=== PATIENT | female | born 1965 | race African-American/Black ===

== ENCOUNTER 2025-07-08 09:01 | Emergency (ER) | payer OTHER ==
[~2025-07-08] VITALS: Ht 162.6 cm; Wt 70.0 kg
[2025-07-08 09:03] VITALS: O2SAT 97
[2025-07-08] MEDS: IBUPROFEN 600MG TABLET PO ONE (10:05)
[2025-07-08] MEDS: ACETAMINOPHEN 325MG TABLET PO ONE (10:05)
[2025-07-08 10:13] LABS: BASOPHILS % 0.4 % (0.0-2.0); EOSINOPHILS % 0.1 % (0.0-5.0); HEMATOCRIT. 43.1 % (36.0-48.0); HEMOGLOBIN. 14.0 g/dL (12.0-16.0); LYMPHOCYTES % 22.9 % (20.0-50.0); MEAN PLATELET VOLUME 7.4 fl (7.4-10.4); MONOCYTES % 14.5 % (2.0-8.0); NEUTROPHILS % 62.1 % (40.0-76.0); PLATELET 152 x1000/uL (130-400); RED BLOOD CELL COUNT 4.30 mill/uL (4.2-5.4); RED CELL DISTRIBUTION WIDTH 13.9 % (11.6-14.6)
[2025-07-08 10:29] LABS: CREATININE 1.2 mg/dL (0.6-1.0); ETHANOL BLOOD < 10 mg/dL (<10); UREA NITROGEN BLOOD 16 mg/dL (9-23)
[2025-07-08 10:31] LABS: ASPARTATE AMINOTRANSFERASE 61 IU/L (<34); BILIRUBIN DIRECT 0.2 mg/dL (<=3.0); BILIRUBIN TOTAL 0.7 mg/dL (0.1-1.0); PROTEIN TOTAL 8.5 g/dL (6.0-8.3); TROPONIN I HIGH SENSITIVITY < 4 ng/L (3.0-34)
[2025-07-08 12:30] LABS: TROPONIN I HIGH SENSITIVITY 4 ng/L (3.0-34)
[2025-07-08 13:13] LABS: CLARITY URINE CLEAR (CLEAR); COLOR URINE YELLOW (YELLOW); GLUCOSE URINE NEGATIVE (NEGATIVE); KETONES URINE 4+ (NEGATIVE); LEUKOCYTE ESTERASE URINE NEGATIVE (NEGATIVE); NITRITE URINE NEGATIVE (NEGATIVE); OCCULT BLOOD URINE NEGATIVE (NEGATIVE); PH URINE 6.0 (4.5-8.0); PROTEIN URINE 2+ (NEGATIVE); SPECIFIC GRAVITY URINE 1.018 (1.005-1.030); UROBILINOGEN URINE 1.0 E.U./dL (0.2-1.0)
[2025-07-08] MEDS: POTASSIUM CHLORIDE 20MEQ TABLET SR PO NR (13:30)
[2025-07-08 13:46] LABS: *AMPHETAMINES SCREEN URINE NEGATIVE (NEGATIVE); *BARBITURATES SCREEN URINE NEGATIVE (NEGATIVE); *BENZODIAZEPINES SCREEN URINE NEGATIVE (NEGATIVE); *COCAINE SCREEN URINE NEGATIVE (NEGATIVE); CANNABINOID URINE SCREEN PRESUMPTIVE POSITIVE (NEGATIVE); ECSTASY MDMA SCREEN URINE NEGATIVE (NEGATIVE); METHADONE URINE SCREEN NEGATIVE (NEGATIVE); OPIATES URINE SCREEN NEGATIVE (NEGATIVE); PHENCYCLIDINE URINE SCREEN NEGATIVE (NEGATIVE)
[2025-07-08 13:54] LABS: MUCUS URINE TRACE /lpf (< = 2+); SQUAMOUS EPITHELIAL CELL URINE 2+ /lpf (RARE/1+); WBC URINE 0-2 /hpf (0-2)
[2025-07-08 13:55] LABS: YEAST URINE 1+
[2025-07-08 13:56] LABS: BACTERIA URINE TRACE; RBC URINE 0-2 /hpf (0-2)
[2025-07-08] MEDS ORDERED: ACET-2708 MT (14:36)
[2025-07-08] MEDS ORDERED: PROT40 MT (14:36)
[2025-07-08] MEDS: FLUCONAZOLE 150MG TABLET PO NR (15:17)
[2025-07-08] MEDS: PANTOPRAZOLE 40MG DR TABLET PO ONE (15:17)
[2025-07-08 15:19] VITALS: BP 146/95; PULSE 95; RESP 16; TEMP 36.8; O2SAT 98
== END 2025-07-08 15:32 | disposition home or self-care (01) ==
LOC: ER 09:20
DX: R10.11 Right upper quadrant pain (principal); B37.31 Acute candidiasis of vulva and vagina; I10 Essential (primary) hypertension; Z79.899 Other long term (current) drug therapy; Z88.5 Allergy status to narcotic agent; Z98.84 Bariatric surgery status
CPT/HCPCS: 36415; 71045; 74176; 76705; 80048; 80076; 80305; 80320; 81003; 81025; 82962; 84484; 85025; 85379; 93005; 99285; G0480